=== PATIENT | female | born 1950 | race Caucasian/White ===

== ENCOUNTER 2023-09-24 19:26 | Outpatient (RCR) | payer OTHER, SELFPAY | END 2023-09-25 11:42 | disposition home or self-care (01) | LOC: RPT 19:26 | PROVIDERS: ATTENDING PHYSICIAN Orthopaedic Surgery Orthopaedic Surgery of the Spine | DX: M48.062 Spinal stenosis, lumbar region with neurogenic claudication (principal) | CPT/HCPCS: 97110 ==

== ENCOUNTER 2023-11-12 09:00 | Outpatient (RCR) | payer OTHER, SELFPAY | END 2023-11-12 23:59 | disposition home or self-care (01) | LOC: RPT 09:00 | PROVIDERS: ATTENDING PHYSICIAN Family Medicine | DX: N39.41 Urge incontinence (principal); N81.2 Incomplete uterovaginal prolapse; Z73.6 Limitation of activities due to disability | CPT/HCPCS: 97110; 97112; 97161; 97535 ==

== ENCOUNTER 2023-12-10 11:01 | Outpatient (RCR) | payer OTHER, SELFPAY | END 2023-12-10 23:59 | disposition home or self-care (01) | LOC: RPT 11:01 | PROVIDERS: ATTENDING PHYSICIAN Family Medicine | DX: N39.41 Urge incontinence (principal); N81.12 Cystocele, lateral; Z73.6 Limitation of activities due to disability; R35.0 Frequency of micturition | CPT/HCPCS: 97110; 97112 ==

== ENCOUNTER 2024-01-07 09:56 | Outpatient (RCR) | payer OTHER, SELFPAY | END 2024-01-07 23:59 | disposition home or self-care (01) | LOC: RPT 09:56 | PROVIDERS: ATTENDING PHYSICIAN Family Medicine | DX: N39.41 Urge incontinence (principal); N81.2 Incomplete uterovaginal prolapse; Z73.6 Limitation of activities due to disability | CPT/HCPCS: 97110; 97112 ==

== ENCOUNTER → 2024-01-30 14:28 | Outpatient (REF) | payer OTHER, SELFPAY | LOC: HWRAD 14:28 | PROVIDERS: ATTENDING PHYSICIAN Family Medicine | DX: M81.0 Age-related osteoporosis without current pathological fracture (principal); Z12.31 Encounter for screening mammogram for malignant neoplasm of breast | CPT/HCPCS: 77063; 77067; 77080 ==

== ENCOUNTER 2024-02-06 15:27 | Outpatient (RCR) | payer OTHER, SELFPAY | END 2024-02-09 07:36 | disposition home or self-care (01) | LOC: RPT 15:27 | PROVIDERS: ATTENDING PHYSICIAN Family Medicine | DX: N39.41 Urge incontinence (principal); N81.2 Incomplete uterovaginal prolapse; Z73.6 Limitation of activities due to disability | CPT/HCPCS: 97014; 97110; 97112; 97530 ==

== ENCOUNTER 2024-06-21 06:06 | Day surgery (SDC) | payer OTHER, SELFPAY ==
[2024-06-15 08:51] LABS: ALT (SGPT) 17 U/L (0-35); AST (SGOT) 26 U/L (14-36); Albumin 4.1 g/dl (3.5-5.0); Alkaline Phosphatase 112 U/L (38-126); Blood Urea Nitrogen 24 mg/dl (7-17); Calcium 9.9 mg/dl (8.4-10.2); Carbon Dioxide 28 mmol/L (22-30); Chloride 103 mmol/L (98-107); Glucose 100 mg/dl (70-99); Potassium 4.6 mmol/L (3.5-5.1); Sodium 141 mmol/L (135-145); Total Bilirubin 0.5 mg/dl (0.2-1.3); Total Protein 6.6 g/dl (6.3-8.2); eGFR > 60.00
[2024-06-15 08:58] LABS: % Eosinophils 5.5 % (0-6); % Immature Granulocytes 0.5 % (0-0.5); % Lymphocytes 23.6 % (20.5-51.1); % Neutrophils 60.4 % (42.2-75.2); Absolute Basophils 0.1 10^3/uL (0-0.2); Absolute Eosinophils 0.5 10^3/uL (0-0.7); Absolute Lymphocytes 2.1 10^3/uL (1.2-3.4); Absolute Monocytes 0.8 10^3/uL (0.1-0.6); Absolute Neutrophils 5.3 10^3/uL (1.4-6.5); Mean Corp Hgb Conc. 34.1 g/dL (33.0-37.0); Mean Corpuscular Hgb 30.6 pg (27.0-31.0); Mean Corpuscular Volume 89.7 fL (81.0-99.0); Mean Platelet Volume 10.3 fL (7.4-10.4); Nucleated Red Blood Cells % 0 %; Platelet Count 320 10^3/uL (130-400); Red Blood Cell Count 4.57 10^6/uL (4.20-5.40); Red Cell Dist. Width 12.8 % (11.5-14.5); White Blood Cell Count 8.8 10^3/uL (4.8-10.8)
[2024-06-21] VITALS (13 sets, daily range): BP systolic 93–124; BP diastolic 50–83; BMI 26.5
[2024-06-21] MEDS: Pyridium 200 MG PO (06:55)
[2024-06-21] MEDS: NORMOSOL-R/PLASMALYTE-A 1000 IV (06:55)
== END 2024-06-21 14:24 | disposition home or self-care (01) ==
LOC: SDS 06:06
PROVIDERS: ATTENDING PHYSICIAN Obstetrics & Gynecology; FAMILY PHYSICIAN Family Medicine
DX: N81.2 Incomplete uterovaginal prolapse (principal); N39.3 Stress incontinence (female) (male); N95.2 Postmenopausal atrophic vaginitis
CPT/HCPCS: 57282; 57288; 57250; 36415; 80053; 85025; 86850; 86900; 86901; 93005; C1771

== ENCOUNTER → 2025-05-18 10:47 | Outpatient (REF) | payer OTHER, SELFPAY | LOC: HWWDC 10:47 | PROVIDERS: ATTENDING PHYSICIAN Family Medicine | DX: Z12.31 Encounter for screening mammogram for malignant neoplasm of breast (principal) | CPT/HCPCS: 77063; 77067 ==

== ENCOUNTER 2025-08-18 06:21 | Day surgery (SDC) | payer OTHER, SELFPAY | END 2025-08-18 12:31 | disposition home or self-care (01) | LOC: GI 06:21 | PROVIDERS: ATTENDING PHYSICIAN Specialist; FAMILY PHYSICIAN Family Medicine | DX: K52.9 Noninfective gastroenteritis and colitis, unspecified (principal); K64.4 Residual hemorrhoidal skin tags; R19.4 Change in bowel habit; K52.832 Lymphocytic colitis | CPT/HCPCS: 45380; 88305; 88342 ==